=== PATIENT | female | born 1975 | race Caucasian/White ===

== ENCOUNTER 2018-05-16 14:28 | Observation (INO) | payer MEDICAID ==
[2018-05-16] VITALS (9 sets, daily range): BP systolic 92–128; BP diastolic 62–85; Ht 170.2 cm; Wt 66.6 kg
[~2018-05-16] VITALS: Ht 170.2 cm; Wt 66.6 kg
[2018-05-16] MEDS ORDERED: anti anxiety med (14:33)
--- NOTE | 2018-05-16 14:48 | NUR ---
SPOKE WITH AMINATA FROM [facility] AT THIS TIME. NOTIFIED DR. HUMPHRIES
[2018-05-16 15:18] LABS: BASOPHILS 0.3 % (0-2); EOSINOPHILS 3.3 % (0-7); HEMATOCRIT 37.7 % (36.0-48.0); HEMOGLOBIN 13.2 g/dL (12-16); IMMATURE GRANULOCYTES 0.4 % (0-5); MCH 35.1 pg (26.0-34.0); MCV 100.3 fL (80.0-100.0); MEAN PLATELET VOLUME 12.7 fL (7.4-10.4); MONOCYTES 5.9 % (2-11); NEUTROPHILS 47.1 % (40-80); RBC 3.76 10x6/uL (4.00-5.40); WBC 6.9 10x3/uL (4.8-10.8)
[2018-05-16 15:47] LABS: ALBUMIN 3.4 g/dL (3.4-5.0); ALKALINE PHOSPHATASE 72 U/L (46-116); ALT (SGPT) 38 U/L (10-68); BILIRUBIN - TOTAL 0.28 mg/dL (0.2-1.3); CALC OSMOLALITY 286 mosm/kg (275-300); CALCIUM 8.4 mg/dL (8.5-10.1); CARBON DIOXIDE 22.8 mmol/L (21.0-32.0); CHLORIDE - SERUM 107 mmol/L (98-107); CREATINE KINASE 55 UL (21-215); CREATININE - SERUM 0.6 mg/dL (0.6-1.3); GLUCOSE 118 mg/dL (74-106); POTASSIUM - SERUM 3.3 mmol/L (3.5-5.1); PROTEIN - SERUM 7.4 g/dL (6.4-8.2); SODIUM 144 mmol/L (136-145); UREA NITROGEN 11 mg/dL (7-18); eGFR NON AFRICAN AMERICAN > 90 mL/min (90-120)
[2018-05-16 15:52] LABS: PLATELET COUNT 136 10x3/uL (130-400)
--- NOTE | 2018-05-16 17:20 | NUR ---
PT ARRIVED ON UNIT VIA STRETCHER, HOOKED TO MONITORS, PT LETHARGIC AT THIS TIMME, ANSWERS SOME QUESTIONS, ALL PPP, VSS, WILL CON'T TO MONITOR
--- NOTE | 2018-05-16 17:31 | MORECARE ---
CASE MANAGEMENT DISCHARGE SUMMARY PATIENT: MARITZA SULLIVAN UNIT: [id number] ADM DATE: 05/16/18 AGE: 43 : 79 SEX: F ROOM/BED: D.2304 AUTHOR: SHYLA NATHAN PHYSICIAN: REFERRING PHYSICIAN: FELIX BURCH MD DATE OF SERVICE: 05/16/18 Discharge Plan Patient Name: MARITZA SULLIVAN [facility] [facility] 1975 Planned Disposition: Anticipated Discharge Date: Discharge Date: Expected LOS: Initial Reviewer: [email or web address] Initial Review Date: 05/16/2018 Generated: 05/16/18 6:31 pm Comments DCP- Discharge Planning Updated by [email or web address]: Daily Corona on 05/16/18 4:[address] CM attempted to meet with patient she is currently drowsy and unable to answer questions. CM will continue to follow and assist as needed with discharge planning /needs. Patient Name: MARITZA SULLIVAN Page [id number] at 1731 All edits/amendments must be made on the electronic document DICTATION DATE: 05/16/181729 MILLINERY DESIGNER: BERNABE 05/16/181729 RPT#: [id number] DC DATE: STATUS: ADM IN [facility] [address] [place] [address] END OF REPORT
--- NOTE | 2018-05-16 18:41 | NUR ---
[facility] CALLED GIVEN UDPATE. NO NEW ORDERS AT THIS TIME.
--- NOTE | 2018-05-16 19:15 | NUR ---
Received patient resting in bed with eyes closed, assessment completed per flowsheet. Patient Lethargic/Arouses to voice, speech is garbled with disorientation to time/place/situation. S1/S2 noted Sinus Tach on telemtry with HR 119, rhythmic and regular. Breathing is shallow on room air with O2 sat 97%, lung sounds clear bilateral upper and mid with diminished lower. Abdomen is round/soft with bowel sounds active x4, non-tender. Weakness noted all extremities with all pulses palpable, skin warm/dry with cap refill < 3 sec. Repositioned for comfort, no further needs at this time. See flowsheet for details, all VSS and will continue to monitor.
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
--- NOTE | 2018-05-16 23:10 | NUR ---
Reassessment completed per flowsheet, no changes from previous assessment. S1/S2 noted Sinus Tach on telemetry with HR 116, rythmic and regular. Breathing is shallow on room air with O2 sat 96%, lung sounds clear bilateral upper and mid with diminished lower. All pulses palpable with cap refill < 3 sec, skin warm/dry. Denies pain or other needs at this time, see flwosheet for details. All VSS and will continue to monitor.
[2018-05-17] VITALS (18 sets, daily range): BP systolic 92–143; BP diastolic 66–98
--- NOTE | 2018-05-17 01:00 | NUR ---
Patient awake requesting water, provided with no difficulty swallowing noted. Assisted to bedside commode, patient unsteady with weakness observed. No urine/BM noted, patient incontinent in bed with full linen change performed. No further needs at this time, will continue close monitoring.
--- NOTE | 2018-05-17 03:10 | NUR ---
Reassessment completed per flowsheet, patient opens eyes spontaneously/answers appropriately. S1/S2 noted NSR on telemetry with HR 96, rythmic and regular. Breathing is shallow/unlabored on room air with O2 sat 95%, lung sounds clear bilateral upper and mid with diminished lower. All pulses palpable with cap refill < 3 sec, skin warm/dry. Denies pain or other needs at this time, see flowsheet for details. All VSS and will continue to monitor.
[2018-05-17 04:36] LABS: BASOPHILS 0.3 % (0-2); EOSINOPHILS 1.6 % (0-7); HEMATOCRIT 32.9 % (36.0-48.0); HEMOGLOBIN 11.3 g/dL (12-16); IMMATURE GRANULOCYTES 0.2 % (0-5); LYMPHOCYTES 23.8 % (15-50); MCH 34.7 pg (26.0-34.0); MCHC 34.3 g/dL (31.0-37.0); MCV 100.9 fL (80.0-100.0); MEAN PLATELET VOLUME 13.1 fL (7.4-10.4); MONOCYTES 4.5 % (2-11); NEUTROPHILS 69.6 % (40-80); PLATELET COUNT 135 10x3/uL (130-400); RBC 3.26 10x6/uL (4.00-5.40); RDW 14.9 % (11.5-14.5)
[2018-05-17 04:46] LABS: WBC 9.3 10x3/uL (4.8-10.8)
--- NOTE | 2018-05-17 05:00 | NUR ---
Patient awake and requesting bedside commode, ambulated without difficulty. Urine sample collected and sent to lab, no further needs and will continue to monitor.
[2018-05-17 05:04] LABS: ALKALINE PHOSPHATASE 61 U/L (46-116); ALT (SGPT) 33 U/L (10-68); BILIRUBIN - TOTAL 0.56 mg/dL (0.2-1.3); CALC OSMOLALITY 276 mosm/kg (275-300); CALCIUM 7.3 mg/dL (8.5-10.1); CHLORIDE - SERUM 105 mmol/L (98-107); CREATININE - SERUM 0.5 mg/dL (0.6-1.3); GLUCOSE 79 mg/dL (74-106); POTASSIUM - SERUM 3.5 mmol/L (3.5-5.1); PROTEIN - SERUM 6.5 g/dL (6.4-8.2); SODIUM 140 mmol/L (136-145); UREA NITROGEN 9 mg/dL (7-18); eGFR NON AFRICAN AMERICAN > 90 mL/min (90-120)
--- NOTE | 2018-05-17 07:00 | NUR ---
PATIENT RESTING IN BED AWAKE ALERT AND ORIENTED X 4. VSS. WILL CONTINUE TO MONITOR.
--- NOTE | 2018-05-17 09:00 | NUR ---
CAME AND BROUGHT MEDS. WILL PUT IN COMPUTER. OBTAINED ORDER FOR NICOTINE PATCH FROM DR. BURCH PER PATIENT REQUEST. VSS. WILL CONTINUE TO MONITOR
[2018-05-17] MEDS ORDERED: KEFLEX500 MG PO (10:04)
[2018-05-17] MEDS ORDERED: BUSPAR10 MG PO (10:04)
[2018-05-17] MEDS ORDERED: LEXAPRO20 MG PO (10:05)
[2018-05-17] MEDS ORDERED: CLOTRIMAZOLE (10:06)
[2018-05-17] MEDS ORDERED: BETAMETHASONE DIPROPIONATE (10:06)
--- NOTE | 2018-05-17 11:00 | NUR ---
PT RESTING IN BED WITH CALL LYNNE IN REACH. NO COMPLAINTS. VSS.
--- NOTE | 2018-05-17 13:00 | NUR ---
PT RESTING IN BED WITH CALL LYNNE IN REACH. NO COMPLAINTS. VSS.
--- NOTE | 2018-05-17 15:00 | NUR ---
PT HAD INCONTINENT VOID IN BED. NURSE CHANGED ALL LINENS AND GAVE PT NEW GOWN. OBTAINED ORDER FOR BACTRIM TO TREAET PRE-EXISTING UTI PER DR. BURCH
--- NOTE | 2018-05-17 16:10 | NUR ---
OBTAINED URINE SPECIMEN FROM VOID FOR UDS AND UA.
[2018-05-17 16:14] LABS: UDS - AMPHET NEGATIVE QUAL (NEGATIVE); UDS - BARB NEGATIVE QUAL (NEGATIVE); UDS - BENZO NEGATIVE QUAL (NEGATIVE); UDS - COCAINE NEGATIVE QUAL (NEGATIVE); UDS - OPIATE NEGATIVE QUAL (NEGATIVE); UDS - PCP NEGATIVE QUAL (NEGATIVE); UDS - THC NEGATIVE QUAL (NEGATIVE)
--- NOTE | 2018-05-17 16:33 | MORECARE ---
CASE MANAGEMENT DISCHARGE SUMMARY PATIENT: MARITZA SULLIVAN UNIT: [id number] ADM DATE: 05/16/18 AGE: 43 : 79 SEX: F ROOM/BED: D.2304 AUTHOR: SHYLA NATHAN PHYSICIAN: REFERRING PHYSICIAN: FELIX BURCH MD DATE OF SERVICE: 05/17/18 Discharge Plan Patient Name: MARITZA SULLIVAN [facility] [facility] 1975 Planned Disposition: Anticipated Discharge Date: Discharge Date: Expected LOS: Initial Reviewer: [email or web address] Initial Review Date: 05/16/2018 Generated: 05/17/18 5:33 pm DCP- Discharge Planning Updated by [email or web address]: Daily Corona on 05/16/18 4:[address] CM attempted to meet with patient she is currently drowsy and unable to answer questions. CM will continue to follow and assist as needed with discharge planning /needs. External Providers External Provider: [facility] (Inpt Adult Psych) Next Contact Date: Service Request Date: Service Type: Resolution: Reviewer: Comments: Last DP export: 05/16/18 4:31 p Patient Name: MARITZA SULLIVAN Page [id number] at 1633 All edits/amendments must be made on the electronic document DICTATION DATE: 05/17/18 1633 LINE SERVICE TECHNICIAN: BERNABE 05/17/18 1633 RPT#: [id number] DC DATE: STATUS: ADM IN [facility] [address] [place] [address] END OF REPORT
--- NOTE | 2018-05-17 16:38 | NUR ---
SPOKE WITH [facility] AT THIS TIME, ABOUT PT POC
--- NOTE | 2018-05-17 16:40 | MORECARE ---
CASE MANAGEMENT DISCHARGE SUMMARY PATIENT: MARITZA SULLIVAN UNIT: [id number] ADM DATE: 05/16/18 AGE: 43 : 79 SEX: F ROOM/BED: D.2304 AUTHOR: SHYLA NATHAN PHYSICIAN: REFERRING PHYSICIAN: FELIX BURCH MD DATE OF SERVICE: 05/17/18 Discharge Plan Patient Name: MARITZA SULLIVAN [facility] [facility] 1975 Planned Disposition: Anticipated Discharge Date: Discharge Date: Expected LOS: Initial Reviewer: [email or web address] Initial Review Date: 05/16/2018 Generated: 05/17/18 5:40 pm Comments DCP- Discharge Planning Updated by [email or web address]: Melinda Samuel on 05/17/18 3:[address] CM notified by nurseBlanca, that Dr. Nelson has seen patient and stated she needed inpatient psych placement. Stated patient is requesting to go to [facility] Inpatient Psych. CM called and spoke with Paige at [facility] about referral. CM coordinated call with nurseBlanca, and Paige to answer questions about patient's functional status, etc. CM faxed records as requested. DCP- Discharge Planning Updated by [email or web address]: Daily Corona on 05/16/18 4:[address] CM attempted to meet with patient she is currently drowsy and unable to answer questions. CM will continue to follow and assist as needed with discharge planning /needs. Last DP export: 05/17/18 3:33 p Patient Name: MARITZA SULLIVAN Page [id number] at 1640 All edits/amendments must be made on the electronic document DICTATION DATE: 05/17/18 1640 CAMPUS POLICE OFFICER: BERNABE 05/17/18 1640 RPT#: [id number] DC DATE: STATUS: ADM IN [facility] [address] [place] [address] END OF REPORT
--- NOTE | 2018-05-17 16:49 | MORECARE ---
CASE MANAGEMENT DISCHARGE SUMMARY PATIENT: MARITZA SULLIVAN UNIT: [id number] ADM DATE: 05/16/18 AGE: 43 : 79 SEX: F ROOM/BED: D.2304 AUTHOR: SHYLA NATHAN PHYSICIAN: REFERRING PHYSICIAN: FELIX BURCH MD DATE OF SERVICE: 05/17/18 Discharge Plan Patient Name: MARITZA SULLIVAN [facility] [facility] 1975 Planned Disposition: Anticipated Discharge Date: Discharge Date: Expected LOS: Initial Reviewer: [email or web address] Initial Review Date: 05/16/2018 Generated: 05/17/18 5:49 pm Comments DCP- Discharge Planning Updated by [email or web address]: Melinda Samuel on 05/17/18 3:[address] CM notified by nurseBlanca, that Dr. Nelson has seen patient and stated she needed inpatient psych placement. Stated patient is requesting to go to [facility] Inpatient Psych. CM called and spoke with Paige at [facility] about referral. CM coordinated call with nurseBlanca, and Paige to answer questions about patient's functional status, etc. CM faxed records as requested. DCP- Discharge Planning Updated by [email or web address]: Daily Corona on 05/16/18 4:[address] CM attempted to meet with patient she is currently drowsy and unable to answer questions. CM will continue to follow and assist as needed with discharge planning /needs. Last DP export: 05/17/18 3:40 p Patient Name: MARITZA SULLIVAN Page [id number] at 1649 All edits/amendments must be made on the electronic document DICTATION DATE: 05/17/181647 REPLENISHMENT MERCHANDISING ASSOCIATE: BERNABE 05/17/181647 RPT#: [id number] DC DATE: STATUS: ADM IN [facility] [address] [place] [address] END OF REPORT
--- NOTE | 2018-05-17 17:35 | NUR ---
PATIENT RESTING IN BED WITH VSS. WAITING FOR DR. LANDAVERDE NOTE TO GET BED FOR PATIENT AT [facility].
[2018-05-17 17:50] LABS: APPEARANCE HAZY (CLEAR); BILIRUBIN NEGATIVE (NEGATIVE); COLOR RED (YELLOW); GLUCOSE NEGATIVE (NEGATIVE); KETONE NEGATIVE (NEGATIVE); NITRITE NEGATIVE (NEGATIVE); PROTEIN 1+ mg/dL (NEGATIVE); SPECIFIC GRAVITY 1.015 (1.005-1.020); UROBILINOGEN NORMAL (NORMAL)
[2018-05-17 17:51] LABS: BACTERIA FEW /hpf (NONE SEEN); EPITHELIAL CELLS 0-5 /hpf (0-5); RED CELLS - URINE >50 /hpf (0-5); WHITE CELLS - URINE 25-50 /hpf (0-5)
--- NOTE | 2018-05-17 18:46 | NUR ---
CALLED [facility] TO GET ACCEPTING PHYSICIAN-DR. TAMAR POWELL, AND ROOM NUMBER [id number]. WILL HAND OFF INFORMATION TO SOUND RECORDING TECHNICIAN NURSE TO GIVE REPORT THEY WERE TOO BUSY TO TAKE REPORT AT THIS TIME.
--- NOTE | 2018-05-17 19:15 | NUR ---
Received patient resting in bed with eyes closed, asssessment completed per flowsheet. Patient AO x4, answers appropriately/follows instructions. Patient denies feelings of self-harm, states she would like "some help" with ongoing depression. S1/S2 noted NSR on telemetry with HR 81, rythmic and regular. Breathing is even/unlabored on room air with o2 sat 95%, lung sounds clear throughout. Abdomen is flat/soft with bowel sounds active x4, non-tender. Ambulates without assist, gait is upright/steady. All pulses palpable with cap refill < 3 sec, skin warm/dry. Denies pain or other needs at this time, see flowsheet for details. All VSS and will continue to monitor.
--- NOTE | 2018-05-17 21:10 | NUR ---
Patient up to bedside commode, slight bloody urine noted due to menstruation. HS meds given without difficulty, denies pain or other needs at this time. [facility] contacted regarding transfer, informed accepting RN not ready for transport and will contact [facility]. All VSS and will continue to monitor.
--- NOTE | 2018-05-17 23:05 | NUR ---
Spoke to Renard Ornelas RN at [facility], ready for patient transport. [facility] contacted regarding transport, patient belongings/paperwork gathered and completed.
--- NOTE | 2018-05-17 23:46 | NUR ---
[facility] on unit for transport, patient ambulated to stretcher without assist. All belongings transported via EMS, no reported difficulties/complaints.
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
--- NOTE | 2018-05-18 15:56 | MORECARE ---
CASE MANAGEMENT DISCHARGE SUMMARY PATIENT: MARITZA SULLIVAN UNIT: [id number] ADM DATE: 05/16/18 AGE: 43 : 79 SEX: F ROOM/BED: D.2304 AUTHOR: SHYLA NATHAN PHYSICIAN: REFERRING PHYSICIAN: FELIX BURCH MD DATE OF SERVICE: 05/18/18 Discharge Plan Patient Name: MARITZA SULLIVAN [facility] [facility] 1975 Planned Disposition: Anticipated Discharge Date: Discharge Date: 05/17/2018 Expected LOS: Initial Reviewer: [email or web address] Initial Review Date: 05/16/2018 Generated: 05/18/18 4:56 pm Comments DCP- Discharge Planning Updated by [email or web address]: Melinda Samuel on 05/17/18 3:[address] CM notified by nurseBlanca, that Dr. Nelson has seen patient and stated she needed inpatient psych placement. Stated patient is requesting to go to [facility] Inpatient Psych. CM called and spoke with Paige at [facility] about referral. CM coordinated call with nurseBlanca, and Paige to answer questions about patient's functional status, etc. CM faxed records as requested. DCP- Discharge Planning Updated by [email or web address]: Daily Corona on 05/16/18 4:[address] CM attempted to meet with patient she is currently drowsy and unable to answer questions. CM will continue to follow and assist as needed with discharge planning /needs. Last DP export: 05/17/18 3:49 p Patient Name: MARITZA SULLIVAN Page [id number] at 1556 All edits/amendments must be made on the electronic document DICTATION DATE: 05/18/18 155 MOISTURE MACHINE TENDER: BERNAEB 05/18/18 1558 RPT#: [id number] DC DATE:05/17/18 STATUS: DIS IN [facility] [address] [place] [address] END OF REPORT
== END 2018-05-17 23:50 | disposition short-term general hospital (02) ==
LOC: D.ER 14:28 → D.ICU 16:12 → OBSVTIME 16:12 → D.ICU 16:12 → OBSVTIME 05-17 11:52 → D.ICU 05-17 23:50
PROVIDERS: Family Medicine; ADMIT Internal Medicine Nephrology; ATTEND Internal Medicine Nephrology
DX: T43.592A Poisoning by other antipsychotics and neuroleptics, intentional self-harm, initial encounter (principal); R45.851 Suicidal ideations; F32.9 Major depressive disorder, single episode, unspecified; F10.129 Alcohol abuse with intoxication, unspecified; F17.200 Nicotine dependence, unspecified, uncomplicated